=== PATIENT | male | born 1935 | race Caucasian/White ===

== ENCOUNTER 2016-06-08 07:53 | Emergency (ER) | payer MEDICARE ==
[~2016-06-08] VITALS: Ht 162.6 cm; Wt 73.0 kg
[2016-06-08 08:50] VITALS: BP 123/72
== END 2016-06-08 08:59 | disposition home or self-care (01) ==
LOC: ER 08:23
DX: R05 Cough (principal); M19.90 Unspecified osteoarthritis, unspecified site
CPT/HCPCS: 99282

== ENCOUNTER 2019-02-13 12:21 | Emergency (ER) | payer MEDICARE, OTHER ==
[~2019-02-13] VITALS: Ht 157.5 cm; Wt 78.0 kg
[2019-02-13 15:48] LABS: BASOPHILS % 0.5 % (0.0-2.0); EOSINOPHILS % 0.7 % (0.0-5.0); HEMATOCRIT. 41.7 % (42.0-52.0); HEMOGLOBIN. 14.2 g/dL (14.0-18.0); LYMPHOCYTES % 19.6 % (20.0-50.0); MEAN CORPUSCULAR HEMOGLOBIN 32.1 pg (28.0-32.0); MEAN CORPUSCULAR VOLUME 94.5 fL (80.0-94.0); MEAN PLATELET VOLUME 7.4 fl (7.4-10.4); MONOCYTES % 5.1 % (2.0-8.0); NEUTROPHILS % 74.1 % (40.0-76.0); PLATELET 251 x1000/uL (130-400); RED BLOOD CELL COUNT 4.41 mill/uL (4.7-6.1); RED CELL DISTRIBUTION WIDTH 14.3 % (11.6-14.6)
[2019-02-13 15:50] LABS: CHLORIDE 107 mEq/L (98-107)
[2019-02-13 15:55] LABS: CLARITY URINE CLEAR (CLEAR); COLOR URINE YELLOW (YELLOW); KETONES URINE NEGATIVE (NEGATIVE); LEUKOCYTE ESTERASE URINE 3+ (NEGATIVE); NITRITE URINE NEGATIVE (NEGATIVE); OCCULT BLOOD URINE 2+ (NEGATIVE); PROTEIN URINE NEGATIVE (NEGATIVE); SPECIFIC GRAVITY URINE 1.008 (1.005-1.030); UROBILINOGEN URINE 0.2 E.U./dL (0.2-1.0)
[2019-02-13] MEDS ORDERED: CEFTRIAXONE 1 G PREMIX 50 ML IV ONE (16:15)
[2019-02-13 17:45] VITALS: BP 124/74
== END 2019-02-13 17:51 | disposition home or self-care (01) ==
LOC: ER 12:21
DX: N39.0 Urinary tract infection, site not specified (principal)
CPT/HCPCS: 36415; 74176; 80053; 81003; 85025; 87077; 87086; 87186; 96365; 99284; J0696

== ENCOUNTER 2020-07-23 03:18 | Emergency (ER) | payer MEDICARE ==
[~2020-07-23] VITALS: Ht 154.9 cm; Wt 73.0 kg
[2020-07-23 03:20] VITALS: BP 122/82
[2020-07-23 03:52] LABS: CLARITY URINE TURBID (CLEAR); COLOR URINE ORANGE (YELLOW); KETONES URINE NEGATIVE (NEGATIVE); LEUKOCYTE ESTERASE URINE 3+ (NEGATIVE); NITRITE URINE NEGATIVE (NEGATIVE); OCCULT BLOOD URINE 3+ (NEGATIVE); PH URINE 6.5 (4.5-8.0); PROTEIN URINE 3+ (NEGATIVE); SPECIFIC GRAVITY URINE 1.016 (1.005-1.030)
[2020-07-23] MEDS ORDERED: CEPH500C2 MT (04:14)
[2020-07-23] MEDS ORDERED: CEPHALEXIN 250MG CAPSULE PO ONE (04:15)
== END 2020-07-23 04:24 | disposition home or self-care (01) ==
LOC: ER 03:18
DX: N30.00 Acute cystitis without hematuria (principal); Z87.440 Personal history of urinary (tract) infections
CPT/HCPCS: 81003; 87077; 87186; 99283

== ENCOUNTER 2020-11-06 20:44 | Emergency (ER) | payer MEDICARE, OTHER ==
[~2020-11-06] VITALS: Ht 165.1 cm; Wt 75.0 kg
[~2020-11-06 20:44] MED LIST: CEPH500C2 MT
[2020-11-06] MEDS ORDERED: TETANUS, DIPHTHERIA, PERTUSSIS VAC/PF 0.5ML (>7YR OLD) IM ONE (21:30)
[2020-11-06 21:40] LABS: BASOPHILS % 0.4 % (0.0-2.0); HEMATOCRIT. 42.8 % (42.0-52.0); HEMOGLOBIN. 14.5 g/dL (14.0-18.0); MEAN CORPUSCULAR HEMOGLOBIN 32.1 pg (28.0-32.0); MEAN CORPUSCULAR VOLUME 94.4 fL (80.0-94.0); MEAN PLATELET VOLUME 7.7 fl (7.4-10.4); MONOCYTES % 4.2 % (2.0-8.0); NEUTROPHILS % 70.4 % (40.0-76.0); PLATELET 187 x1000/uL (130-400); RED BLOOD CELL COUNT 4.53 mill/uL (4.7-6.1); RED CELL DISTRIBUTION WIDTH 14.2 % (11.6-14.6)
[2020-11-06 21:42] LABS: CLARITY URINE CLOUDY (CLEAR); COLOR URINE DARK YELLOW (YELLOW); KETONES URINE 1+ (NEGATIVE); LEUKOCYTE ESTERASE URINE TRACE (NEGATIVE); NITRITE URINE NEGATIVE (NEGATIVE); OCCULT BLOOD URINE NEGATIVE (NEGATIVE); PH URINE 5.5 (4.5-8.0); PROTEIN URINE 1+ (NEGATIVE); SPECIFIC GRAVITY URINE 1.027 (1.005-1.030); UROBILINOGEN URINE 0.2 E.U./dL (0.2-1.0)
[2020-11-06 21:45] LABS: CHLORIDE 102 mEq/L (98-107)
[2020-11-06 21:51] LABS: PROTHROMBIN TIME 10.5 sec (9.6-11.0)
[2020-11-06] MEDS ORDERED: POTASSIUM CHLORIDE 20MEQ TABLET SR PO ONE (22:30)
[2020-11-07 00:58] VITALS: BP 106/68
== END 2020-11-07 01:11 | disposition home or self-care (01) ==
LOC: ER 20:44
DX: S00.81XA Abrasion of other part of head, initial encounter (principal); W18.39XA Other fall on same level, initial encounter; Y93.89 Activity, other specified; Y92.89 Other specified places as the place of occurrence of the external cause; Y99.8 Other external cause status; Z87.440 Personal history of urinary (tract) infections
CPT/HCPCS: 36415; 80053; 81003; 85025; 90471; 90715; 93005; 99285

== ENCOUNTER 2020-11-12 09:40 | Inpatient (IN) | payer MEDICARE, OTHER ==
[~2020-11-12] VITALS: Ht 162.6 cm; Wt 62.6 kg
[2020-11-12] MEDS ORDERED: DEXAMETHASONE 10 MG/ML VIAL IV ONE (10:15)
[2020-11-12 10:27] LABS: HEMATOCRIT. 41.9 % (42.0-52.0); HEMOGLOBIN. 14.6 g/dL (14.0-18.0); MEAN CORPUSCULAR HEMOGLOBIN 32.1 pg (28.0-32.0); MEAN PLATELET VOLUME 7.6 fl (7.4-10.4); PLATELET 276 x1000/uL (130-400); RED BLOOD CELL COUNT 4.56 mill/uL (4.7-6.1); RED CELL DISTRIBUTION WIDTH 14.1 % (11.6-14.6)
[2020-11-12 10:30] LABS: CHLORIDE 102 mEq/L (98-107)
[2020-11-12 10:32] LABS: INR 1.1; PROTHROMBIN TIME 11.4 sec (9.6-11.0)
[2020-11-12 10:55] LABS: CREATINE KINASE 265 IU/L (39-308)
[2020-11-12 10:57] LABS: PLATELET ESTIMATE NORMAL
[2020-11-12 11:50] LABS: BG BASE EXCESS -5.8 mmol/L (-2.0-2.0); BG CARBOXYHEMOGLOBIN 0.8 % (0.5-1.5); BG DEOXYHEMOGLOBIN 5.8 % (0.0-5.0); BG FRACTION INSPIRED OXYGEN 36; BG METHEMOGLOBIN 0.1 % (0.0-1.5); BG OXYGEN SATURATION 94.1 % (92.0-98.5); BG OXYHEMOGLOBIN 93.3 % (94.0-97.0); BG PH 7.416 (7.350-7.450); BG PO2 70.7 mmHg (75.0-100.0); BG SAMPLE SITE RIGHT BRACHIAL; BG VENT MODE NASAL CANNULA
[2020-11-12] MEDS ORDERED: AZITHROMYCIN 500 MG in DEXT 5% WATER 250 ML IV SCH (12:30)
[2020-11-12] MEDS ORDERED: CEFTRIAXONE 1 G PREMIX 50 ML IV ONE (12:30)
[2020-11-12 13:11] LABS: CLARITY URINE CLEAR (CLEAR); COLOR URINE DARK YELLOW (YELLOW); KETONES URINE 4+ (NEGATIVE); LEUKOCYTE ESTERASE URINE NEGATIVE (NEGATIVE); NITRITE URINE NEGATIVE (NEGATIVE); OCCULT BLOOD URINE 2+ (NEGATIVE); PH URINE 6.5 (4.5-8.0); PROTEIN URINE 2+ (NEGATIVE); SPECIFIC GRAVITY URINE 1.029 (1.005-1.030)
[2020-11-12] MEDS ORDERED: ALBUTEROL (0.5%) 2.5MG/0.5ML NEB HHN ONE (14:45)
[2020-11-12] MEDS ORDERED: DOCUSATE SODIUM 100MG CAPSULE PO PRN (16:00)
[2020-11-12] MEDS ORDERED: HYDROCODONE/ACETAMINOPHEN 5/325MG TABLET PO PRN (16:00)
[2020-11-12] MEDS ORDERED: GUAIFENESIN 200MG/10ML SUGAR FREE UDC PO PRN (16:00)
[2020-11-12] MEDS ORDERED: NA PHOS,M-B/NA PHOS,DI-BA ENEMA 118ML PR PRN (16:00)
[2020-11-12] MEDS ORDERED: ONDANSETRON HCL 4MG/2ML INJ IV PRN (16:00)
[2020-11-12] MEDS ORDERED: ACETAMINOPHEN 650MG SUPP PR PRN (16:00)
[2020-11-12] MEDS ORDERED: ACETAMINOPHEN 650MG/20.3ML UDC GT PRN (16:00)
[2020-11-12] MEDS ORDERED: CLONIDINE 0.1MG TABLET PO PRN (16:00)
[2020-11-12] MEDS ORDERED: MAGNESIUM/ALUMINUM HYDROXIDE/SIMETHICONE 30ML UDC PO PRN (16:00)
[2020-11-12] MEDS: ENOXAPARIN 40MG/0.4ML SYR SUBCUT SCH (17:53)
[2020-11-12] MEDS: DEXAMETHASONE 10 MG/ML VIAL IV SCH (17:53)
[2020-11-12 18:15] VITALS: BP 97/56
[2020-11-12] MEDS: ALBUTEROL 6.7GM HFA INHALER ORI SCH ×2 (18:15→21:27)
[2020-11-12 18:21] VITALS: BP 97/56
[2020-11-12] MEDS ORDERED: CIPR-264 MT (18:37)
[2020-11-12 20:00] VITALS: BP 104/62
[2020-11-12] MEDS: CEFEPIME 1,000 MG in DEXTROSE 5% WATER 50 ML IV SCH (21:26)
[2020-11-12] MEDS: FAMOTIDINE 20MG TABLET PO SCH (21:27)
[2020-11-12 23:23] LABS: CREATINE KINASE 179 IU/L (39-308)
[2020-11-12 23:24] LABS: CREATINE KINASE MB FRACTION 2.7 ng/mL (0.5-3.6)
[2020-11-13] VITALS: BP 110/63
[2020-11-13 04:00] VITALS: BP 111/51
[2020-11-13] MEDS: ALBUTEROL 6.7GM HFA INHALER ORI SCH ×4 (04:00→20:25)
[2020-11-13 07:18] LABS: HEMATOCRIT. 41.9 % (42.0-52.0); HEMOGLOBIN. 14.4 g/dL (14.0-18.0); MEAN CORPUSCULAR HEMOGLOBIN 31.7 pg (28.0-32.0); MEAN CORPUSCULAR VOLUME 92.1 fL (80.0-94.0); MEAN PLATELET VOLUME 7.7 fl (7.4-10.4); PLATELET 297 x1000/uL (130-400); RED BLOOD CELL COUNT 4.54 mill/uL (4.7-6.1); RED CELL DISTRIBUTION WIDTH 14.2 % (11.6-14.6)
[2020-11-13 07:31] LABS: CHLORIDE 102 mEq/L (98-107)
[2020-11-13 07:41] LABS: T4 FREE 1.18 ng/dL (0.76-1.46)
[2020-11-13 07:42] LABS: CREATINE KINASE 136 IU/L (39-308); CREATINE KINASE MB FRACTION 3.7 ng/mL (0.5-3.6); HDL CHOLESTEROL 30 mg/dL (40-59); LDL CHOLESTEROL 99 mg/dL (5-100)
[2020-11-13 08:00] VITALS: BP 117/62
[2020-11-13] MEDS: CEFEPIME 1,000 MG in DEXTROSE 5% WATER 50 ML IV SCH ×2 (08:19→20:25)
[2020-11-13] MEDS: DEXAMETHASONE 10 MG/ML VIAL IV SCH (08:20)
[2020-11-13 10:16] LABS: *AMPHETAMINES SCREEN URINE NEGATIVE (NEGATIVE); *BARBITURATES SCREEN URINE NEGATIVE (NEGATIVE); *BENZODIAZEPINES SCREEN URINE NEGATIVE (NEGATIVE); *COCAINE SCREEN URINE NEGATIVE (NEGATIVE); CANNABINOID URINE SCREEN NEGATIVE (NEGATIVE); METHADONE URINE SCREEN NEGATIVE (NEGATIVE); OPIATES URINE SCREEN NEGATIVE (NEGATIVE); PHENCYCLIDINE URINE SCREEN NEGATIVE (NEGATIVE)
[2020-11-13] MEDS ORDERED: POTASSIUM CHLORIDE 20MEQ TABLET SR PO NR (11:00)
[2020-11-13 12:00] VITALS: BP 119/69
[2020-11-13] MEDS: AZITHROMYCIN 500 MG in DEXT 5% WATER 250 ML IV SCH (12:20)
[2020-11-13] MEDS ORDERED: CEFTRIAXONE 1 G PREMIX 50 ML IV SCH (12:30)
[2020-11-13] MEDS ORDERED: AZITHROMYCIN 500 MG in DEXT 5% WATER 250 ML IV SCH (13:00)
[2020-11-13 16:00] VITALS: BP 131/74
[2020-11-13 17:00] LABS: BG BASE EXCESS -5.4 mmol/L (-2.0-2.0); BG CARBOXYHEMOGLOBIN 0.6 % (0.5-1.5); BG DEOXYHEMOGLOBIN 6.2 % (0.0-5.0); BG FRACTION INSPIRED OXYGEN 100; BG HCO3 ACT 16.8 mmol/L (22.0-26.0); BG METHEMOGLOBIN 0.3 % (0.0-1.5); BG OXYGEN SATURATION 93.7 % (92.0-98.5); BG OXYHEMOGLOBIN 92.9 % (94.0-97.0); BG PCO2 25.2 mmHg (35.0-45.0); BG PH 7.442 (7.350-7.450); BG PO2 67.8 mmHg (75.0-100.0); BG SAMPLE SITE RIGHT RADIAL; BG TOTAL HEMOGLOBIN 14.9 g/dL (12.0-18.0); BG VENT MODE MASK - NRB
[2020-11-13] MEDS ORDERED: NALOXONE HCL 0.4MG/ML VIAL IV PRN (17:00)
[2020-11-13 17:01] LABS: PLATELET ESTIMATE NORMAL
[2020-11-13] MEDS: ENOXAPARIN 40MG/0.4ML SYR SUBCUT SCH (17:04)
[2020-11-13 20:00] VITALS: BP 133/79
[2020-11-13] MEDS: FAMOTIDINE 20MG TABLET PO SCH (20:25)
[2020-11-13] MEDS ORDERED: IOHEXOL-350 100 ML BOTTLE ONE (23:24)
[2020-11-14] VITALS: BP 106/68
[2020-11-14 04:00] VITALS: BP 119/68
[2020-11-14] MEDS: ALBUTEROL 6.7GM HFA INHALER ORI SCH ×4 (06:08→22:05)
[2020-11-14 06:25] LABS: CHLORIDE 103 mEq/L (98-107)
[2020-11-14] MEDS: DEXAMETHASONE 10 MG/ML VIAL IV SCH (08:59)
[2020-11-14] MEDS: CEFEPIME 1,000 MG in DEXTROSE 5% WATER 50 ML IV SCH ×2 (08:59→22:05)
[2020-11-14 11:14] LABS: BG BASE EXCESS -3.4 mmol/L (-2.0-2.0); BG CARBOXYHEMOGLOBIN 0.4 % (0.5-1.5); BG DEOXYHEMOGLOBIN 4.3 % (0.0-5.0); BG FRACTION INSPIRED OXYGEN 99.8; BG HCO3 ACT 18.8 mmol/L (22.0-26.0); BG METHEMOGLOBIN 0.3 % (0.0-1.5); BG OXYGEN SATURATION 95.7 % (92.0-98.5); BG PCO2 27.5 mmHg (35.0-45.0); BG PH 7.453 (7.350-7.450); BG SAMPLE SITE LEFT RADIAL; BG TOTAL HEMOGLOBIN 15.9 g/dL (12.0-18.0); BG VENT MODE MASK - NRB
[2020-11-14 12:00] VITALS: BP 117/77
[2020-11-14] MEDS: AZITHROMYCIN 500 MG in DEXT 5% WATER 250 ML IV SCH (12:17)
[2020-11-14 16:00] VITALS: BP 144/91
[2020-11-14] MEDS: ENOXAPARIN 40MG/0.4ML SYR SUBCUT SCH (19:18)
[2020-11-14 20:00] VITALS: BP 134/83
[2020-11-14] MEDS: FAMOTIDINE 20MG TABLET PO SCH (22:05)
[2020-11-15] VITALS: BP 125/76
[2020-11-15 04:00] VITALS: BP 118/81
[2020-11-15] MEDS: ALBUTEROL 6.7GM HFA INHALER ORI SCH ×4 (05:05→17:13)
[2020-11-15 07:03] LABS: HEMATOCRIT. 47.9 % (42.0-52.0); HEMOGLOBIN. 16.1 g/dL (14.0-18.0); MEAN CORPUSCULAR VOLUME 92.1 fL (80.0-94.0); MEAN PLATELET VOLUME 7.8 fl (7.4-10.4); PLATELET 370 x1000/uL (130-400); RED CELL DISTRIBUTION WIDTH 14.3 % (11.6-14.6)
[2020-11-15 07:13] LABS: CHLORIDE 102 mEq/L (98-107)
[2020-11-15 08:00] VITALS: BP 100/51
[2020-11-15] MEDS: DEXAMETHASONE 10 MG/ML VIAL IV SCH (08:01)
[2020-11-15] MEDS: CEFEPIME 1,000 MG in DEXTROSE 5% WATER 50 ML IV SCH ×2 (08:01→20:21)
[2020-11-15 11:48] LABS: BG BASE EXCESS -1.8 mmol/L (-2.0-2.0); BG CARBOXYHEMOGLOBIN 0.7 % (0.5-1.5); BG DEOXYHEMOGLOBIN 8.6 % (0.0-5.0); BG FRACTION INSPIRED OXYGEN 99.8; BG HCO3 ACT 20.3 mmol/L (22.0-26.0); BG OXYGEN SATURATION 91.3 % (92.0-98.5); BG OXYHEMOGLOBIN 90.7 % (94.0-97.0); BG PCO2 28.6 mmHg (35.0-45.0); BG PO2 58.1 mmHg (75.0-100.0); BG SAMPLE SITE RIGHT BRACHIAL; BG TOTAL HEMOGLOBIN 15.7 g/dL (12.0-18.0); BG VENT MODE MASK - NRB
[2020-11-15 12:00] VITALS: BP 134/82
[2020-11-15] MEDS: AZITHROMYCIN 500 MG in DEXT 5% WATER 250 ML IV SCH (15:02)
[2020-11-15 16:00] VITALS: BP 137/74
[2020-11-15] MEDS: ENOXAPARIN 40MG/0.4ML SYR SUBCUT SCH (17:04)
[2020-11-15 20:00] VITALS: BP 139/86
[2020-11-15 20:03] LABS: PLATELET ESTIMATE NORMAL
[2020-11-15] MEDS: FAMOTIDINE 20MG TABLET PO SCH (20:45)
[2020-11-15] MEDS: DIPHENHYDRAMINE 50MG/ML VIAL IV PRN (20:45)
[2020-11-16] VITALS: BP 125/83
[2020-11-16] MEDS: DIPHENHYDRAMINE 50MG/ML VIAL IV PRN ×2 (03:08→08:01)
[2020-11-16 04:00] VITALS: BP 126/73
[2020-11-16] MEDS: LORAZEPAM 0.5MG TABLET PO PRN ×2 (04:12→08:01)
[2020-11-16] MEDS: ALBUTEROL 6.7GM HFA INHALER ORI SCH ×4 (04:12→21:12)
[2020-11-16 07:44] LABS: HEMATOCRIT. 44.2 % (42.0-52.0); MEAN CORPUSCULAR HEMOGLOBIN 31.5 pg (28.0-32.0); MEAN CORPUSCULAR VOLUME 93.1 fL (80.0-94.0); MEAN PLATELET VOLUME 7.3 fl (7.4-10.4); PLATELET 367 x1000/uL (130-400); RED BLOOD CELL COUNT 4.75 mill/uL (4.7-6.1); RED CELL DISTRIBUTION WIDTH 14.2 % (11.6-14.6)
[2020-11-16 08:00] VITALS: BP 112/76
[2020-11-16] MEDS: DEXAMETHASONE 10 MG/ML VIAL IV SCH (08:01)
[2020-11-16] MEDS: CEFEPIME 1,000 MG in DEXTROSE 5% WATER 50 ML IV SCH ×2 (08:01→19:32)
[2020-11-16 08:07] LABS: BG DEOXYHEMOGLOBIN 4.7 % (0.0-5.0); BG HCO3 ACT 21.1 mmol/L (22.0-26.0); BG METHEMOGLOBIN 0.2 % (0.0-1.5); BG OXYGEN SATURATION 95.3 % (92.0-98.5); BG OXYHEMOGLOBIN 95.1 % (94.0-97.0); BG PCO2 28.8 mmHg (35.0-45.0); BG PH 7.483 (7.350-7.450); BG PO2 74.9 mmHg (75.0-100.0); BG SAMPLE SITE RIGHT RADIAL; BG TOTAL HEMOGLOBIN 14.7 g/dL (12.0-18.0); BG VENT MODE VAPOTHERM
[2020-11-16 08:09] LABS: CHLORIDE 105 mEq/L (98-107)
[2020-11-16] MEDS ORDERED: LORAZEPAM 2MG/ML CPJ IV SCH (09:15)
[2020-11-16] MEDS ORDERED: IVERMECTIN 3 MG TABLET PO SCH (10:30)
[2020-11-16] MEDS ORDERED: LORAZEPAM 2MG/ML CPJ IV PRN ×2 (11:00→11:30)
[2020-11-16 12:00] VITALS: BP 114/81
[2020-11-16] MEDS: AZITHROMYCIN 500 MG in DEXT 5% WATER 250 ML IV SCH (12:05)
[2020-11-16] MEDS ORDERED: MORPHINE SULFATE 2 MG/ML CPJ (NOT FOR IM USE) IV PRN (12:15)
[2020-11-16] MEDS: QUETIAPINE FUMARATE 25MG TABLET PO SCH (12:51)
[2020-11-16 16:00] VITALS: BP 96/60
[2020-11-16 16:57] LABS: PLATELET ESTIMATE NORMAL
[2020-11-16] MEDS: ENOXAPARIN 40MG/0.4ML SYR SUBCUT SCH (17:06)
[2020-11-16] MEDS: LORAZEPAM 2MG/ML CPJ IV PRN (19:32)
[2020-11-16 20:00] VITALS: BP 98/52
[2020-11-16] MEDS: FAMOTIDINE 20MG TABLET PO SCH (21:12)
[2020-11-17] VITALS: BP 128/59
[2020-11-17] MEDS: LORAZEPAM 2MG/ML CPJ IV PRN (02:23)
[2020-11-17] MEDS: ALBUTEROL 6.7GM HFA INHALER ORI SCH ×4 (02:57→21:01)
[2020-11-17 04:00] VITALS: BP 130/64
[2020-11-17] MEDS: DIPHENHYDRAMINE 50MG/ML VIAL IV PRN (05:11)
[2020-11-17 06:23] LABS: HEMATOCRIT. 38.9 % (42.0-52.0); HEMOGLOBIN. 13.4 g/dL (14.0-18.0); MEAN CORPUSCULAR HEMOGLOBIN 31.5 pg (28.0-32.0); MEAN CORPUSCULAR VOLUME 91.3 fL (80.0-94.0); MEAN PLATELET VOLUME 7.7 fl (7.4-10.4); PLATELET 323 x1000/uL (130-400); RED BLOOD CELL COUNT 4.26 mill/uL (4.7-6.1); RED CELL DISTRIBUTION WIDTH 14.2 % (11.6-14.6)
[2020-11-17 06:48] LABS: CHLORIDE 108 mEq/L (98-107)
[2020-11-17 08:00] VITALS: BP 129/70
[2020-11-17] MEDS: QUETIAPINE FUMARATE 25MG TABLET PO SCH ×2 (08:12→09:00)
[2020-11-17] MEDS: DEXAMETHASONE 10 MG/ML VIAL IV SCH (08:12)
[2020-11-17] MEDS: CEFEPIME 1,000 MG in DEXTROSE 5% WATER 50 ML IV SCH ×2 (08:12→20:57)
[2020-11-17 10:38] LABS: PLATELET ESTIMATE NORMAL
[2020-11-17 12:00] VITALS: BP 124/61
[2020-11-17 12:20] LABS: BG BASE EXCESS -2.6 mmol/L (-2.0-2.0); BG CARBOXYHEMOGLOBIN 0.3 % (0.5-1.5); BG DEOXYHEMOGLOBIN 4.5 % (0.0-5.0); BG FRACTION INSPIRED OXYGEN 100; BG HCO3 ACT 20.3 mmol/L (22.0-26.0); BG METHEMOGLOBIN 0.3 % (0.0-1.5); BG OXYGEN SATURATION 95.5 % (92.0-98.5); BG OXYHEMOGLOBIN 94.9 % (94.0-97.0); BG PCO2 29.9 mmHg (35.0-45.0); BG PH 7.449 (7.350-7.450); BG PO2 77.9 mmHg (75.0-100.0); BG SAMPLE SITE RIGHT RADIAL; BG TOTAL HEMOGLOBIN 13.6 g/dL (12.0-18.0); BG VENT MODE HIGH FLOW
[2020-11-17] MEDS: DEXT 5%/0.45% NACL 1000ML 1,000 ML IV SCH (13:42)
[2020-11-17 16:00] VITALS: BP 106/61
[2020-11-17 18:24] LABS: BG BASE EXCESS -2.9 mmol/L (-2.0-2.0); BG CARBOXYHEMOGLOBIN 0.1 % (0.5-1.5); BG DEOXYHEMOGLOBIN 6.3 % (0.0-5.0); BG FRACTION INSPIRED OXYGEN 100; BG HCO3 ACT 19.7 mmol/L (22.0-26.0); BG METHEMOGLOBIN 0.3 % (0.0-1.5); BG OXYGEN SATURATION 93.7 % (92.0-98.5); BG OXYHEMOGLOBIN 93.3 % (94.0-97.0); BG PCO2 28.4 mmHg (35.0-45.0); BG PH 7.458 (7.350-7.450); BG PO2 66.2 mmHg (75.0-100.0); BG SAMPLE SITE RIGHT RADIAL; BG TOTAL HEMOGLOBIN 13.4 g/dL (12.0-18.0); BG VENT MODE HIGH FLOW
[2020-11-17] MEDS: ENOXAPARIN 40MG/0.4ML SYR SUBCUT SCH (19:18)
[2020-11-17 20:00] VITALS: BP 127/69
[2020-11-17] MEDS: FAMOTIDINE 20MG TABLET PO SCH (21:00)
[2020-11-18] VITALS (24 sets, daily range): BP systolic 59–152; BP diastolic 30–108
[2020-11-18] MEDS: ALBUTEROL 6.7GM HFA INHALER ORI SCH ×2 (07:24→11:51)
[2020-11-18 08:24] LABS: BG BASE EXCESS -1.8 mmol/L (-2.0-2.0); BG CARBOXYHEMOGLOBIN 0.1 % (0.5-1.5); BG DEOXYHEMOGLOBIN 9.5 % (0.0-5.0); BG HCO3 ACT 20.8 mmol/L (22.0-26.0); BG METHEMOGLOBIN 0.3 % (0.0-1.5); BG OXYGEN SATURATION 90.5 % (92.0-98.5); BG OXYHEMOGLOBIN 90.1 % (94.0-97.0); BG PCO2 29.9 mmHg (35.0-45.0); BG PH 7.461 (7.350-7.450); BG PO2 55.1 mmHg (75.0-100.0); BG SAMPLE SITE RIGHT RADIAL; BG TOTAL HEMOGLOBIN 14.7 g/dL (12.0-18.0); BG VENT MODE VAPOTHERM
[2020-11-18] MEDS: DEXT 5%/0.45% NACL 1000ML 1,000 ML IV SCH ×2 (08:28→23:19)
[2020-11-18] MEDS: QUETIAPINE FUMARATE 25MG TABLET PO SCH (08:28)
[2020-11-18] MEDS: DEXAMETHASONE 10 MG/ML VIAL IV SCH (08:43)
[2020-11-18 09:39] LABS: HEMATOCRIT. 40.7 % (42.0-52.0); MEAN CORPUSCULAR HEMOGLOBIN 31.5 pg (28.0-32.0); MEAN CORPUSCULAR VOLUME 91.4 fL (80.0-94.0); MEAN PLATELET VOLUME 7.6 fl (7.4-10.4); PLATELET 420 x1000/uL (130-400); RED BLOOD CELL COUNT 4.45 mill/uL (4.7-6.1); RED CELL DISTRIBUTION WIDTH 14.1 % (11.6-14.6)
[2020-11-18 09:43] LABS: CHLORIDE 109 mEq/L (98-107)
[2020-11-18 10:56] LABS: PLATELET ESTIMATE INCREASED
[2020-11-18 15:32] LABS: BG BASE EXCESS -2.6 mmol/L (-2.0-2.0); BG CARBOXYHEMOGLOBIN 0.7 % (0.5-1.5); BG DEOXYHEMOGLOBIN 5.2 % (0.0-5.0); BG HCO3 ACT 19.5 mmol/L (22.0-26.0); BG OXYGEN SATURATION 94.8 % (92.0-98.5); BG OXYHEMOGLOBIN 94.1 % (94.0-97.0); BG PCO2 27.6 mmHg (35.0-45.0); BG PH 7.468 (7.350-7.450); BG PO2 67.8 mmHg (75.0-100.0); BG SAMPLE SITE RIGHT BRACHIAL; BG TOTAL HEMOGLOBIN 14.6 g/dL (12.0-18.0); BG VENT MODE VAPOTHERM
[2020-11-18] MEDS: ENOXAPARIN 40MG/0.4ML SYR SUBCUT SCH (18:00)
[2020-11-18] MEDS ORDERED: POTASSIUM CHLORIDE INJ 40 MEQ in DEXT 5% WATER 250 ML IV ONE (20:30)
[2020-11-18] MEDS: FAMOTIDINE 20MG TABLET PO SCH (20:31)
[2020-11-19] VITALS (48 sets, daily range): BP systolic 86–162; BP diastolic 57–114
[2020-11-19 05:47] LABS: HEMATOCRIT. 39.2 % (42.0-52.0); HEMOGLOBIN. 13.6 g/dL (14.0-18.0); MEAN CORPUSCULAR HEMOGLOBIN 31.5 pg (28.0-32.0); MEAN CORPUSCULAR VOLUME 90.6 fL (80.0-94.0); MEAN PLATELET VOLUME 7.8 fl (7.4-10.4); PLATELET 400 x1000/uL (130-400); RED BLOOD CELL COUNT 4.33 mill/uL (4.7-6.1); RED CELL DISTRIBUTION WIDTH 13.8 % (11.6-14.6)
[2020-11-19 05:51] LABS: CHLORIDE 109 mEq/L (98-107)
[2020-11-19 07:31] LABS: PLATELET ESTIMATE NORMAL
[2020-11-19] MEDS: LORAZEPAM 2MG/ML CPJ IV PRN (07:36)
[2020-11-19] MEDS: QUETIAPINE FUMARATE 25MG TABLET PO SCH (08:26)
[2020-11-19] MEDS: DEXAMETHASONE 10 MG/ML VIAL IV SCH (08:26)
[2020-11-19 09:07] LABS: BG BASE EXCESS -3.7 mmol/L (-2.0-2.0); BG CARBOXYHEMOGLOBIN 0.3 % (0.5-1.5); BG DEOXYHEMOGLOBIN 7.3 % (0.0-5.0); BG FRACTION INSPIRED OXYGEN 99.9; BG HCO3 ACT 18.7 mmol/L (22.0-26.0); BG METHEMOGLOBIN 0.1 % (0.0-1.5); BG OXYGEN SATURATION 92.7 % (92.0-98.5); BG OXYHEMOGLOBIN 92.3 % (94.0-97.0); BG PCO2 27.4 mmHg (35.0-45.0); BG PH 7.453 (7.350-7.450); BG PO2 60.6 mmHg (75.0-100.0); BG SAMPLE SITE RIGHT RADIAL; BG TOTAL HEMOGLOBIN 13.9 g/dL (12.0-18.0); BG VENT MODE HIGH FLOW
[2020-11-19] MEDS: ENOXAPARIN 40MG/0.4ML SYR SUBCUT SCH (17:48)
[2020-11-19] MEDS: FAMOTIDINE 20MG TABLET PO SCH (20:12)
[2020-11-19] MEDS: DEXT 5%/0.45% NACL 1000ML 1,000 ML IV SCH (20:44)
[2020-11-19] MEDS: ALBUTEROL 6.7GM HFA INHALER ORI SCH ×2 (21:00→21:15)
[2020-11-20] VITALS (50 sets, daily range): BP systolic 74–145; BP diastolic 43–87
[2020-11-20] MEDS: LORAZEPAM 2MG/ML CPJ IV PRN (03:27)
[2020-11-20] MEDS: ALBUTEROL 6.7GM HFA INHALER ORI SCH ×3 (08:22→21:27)
[2020-11-20] MEDS: DEXAMETHASONE 10 MG/ML VIAL IV SCH (08:27)
[2020-11-20] MEDS: QUETIAPINE FUMARATE 25MG TABLET PO SCH (08:28)
[2020-11-20 09:51] LABS: BG BASE EXCESS -1.7 mmol/L (-2.0-2.0); BG CARBOXYHEMOGLOBIN 0.7 % (0.5-1.5); BG DEOXYHEMOGLOBIN 12.5 % (0.0-5.0); BG FRACTION INSPIRED OXYGEN 100; BG HCO3 ACT 20.2 mmol/L (22.0-26.0); BG METHEMOGLOBIN 0.3 % (0.0-1.5); BG OXYGEN SATURATION 87.4 % (92.0-98.5); BG OXYHEMOGLOBIN 86.5 % (94.0-97.0); BG PCO2 27.3 mmHg (35.0-45.0); BG PH 7.486 (7.350-7.450); BG PO2 49.6 mmHg (75.0-100.0); BG SAMPLE SITE LEFT RADIAL; BG TOTAL HEMOGLOBIN 14.6 g/dL (12.0-18.0); BG VENT MODE HIGH FLOW
[2020-11-20 13:06] LABS: HEMATOCRIT. 38.2 % (42.0-52.0); MEAN CORPUSCULAR HEMOGLOBIN 31.4 pg (28.0-32.0); MEAN PLATELET VOLUME 7.8 fl (7.4-10.4); PLATELET 345 x1000/uL (130-400); RED BLOOD CELL COUNT 4.16 mill/uL (4.7-6.1); RED CELL DISTRIBUTION WIDTH 14.2 % (11.6-14.6)
[2020-11-20 13:48] LABS: PLATELET ESTIMATE NORMAL
[2020-11-20 14:12] LABS: CHLORIDE 107 mEq/L (98-107)
[2020-11-20] MEDS: FAMOTIDINE 20MG TABLET PO SCH (20:20)
[2020-11-20] MEDS: DEXT 5%/0.45% NACL 1000ML 1,000 ML IV SCH (20:24)
[2020-11-20] MEDS: ENOXAPARIN 40MG/0.4ML SYR SUBCUT SCH (20:24)
[2020-11-21] VITALS (82 sets, daily range): BP systolic 65–200; BP diastolic 16–127
[2020-11-21] MEDS: ALBUTEROL 6.7GM HFA INHALER ORI SCH ×2 (01:15→08:15)
[2020-11-21 05:17] LABS: BG BASE EXCESS -3.7 mmol/L (-2.0-2.0); BG CARBOXYHEMOGLOBIN 0.4 % (0.5-1.5); BG DEOXYHEMOGLOBIN 20.2 % (0.0-5.0); BG FRACTION INSPIRED OXYGEN 100; BG HCO3 ACT 19.2 mmol/L (22.0-26.0); BG METHEMOGLOBIN 0.1 % (0.0-1.5); BG OXYGEN SATURATION 79.7 % (92.0-98.5); BG OXYHEMOGLOBIN 79.3 % (94.0-97.0); BG PCO2 29.5 mmHg (35.0-45.0); BG PH 7.432 (7.350-7.450); BG PO2 41.7 mmHg (75.0-100.0); BG SAMPLE SITE LEFT RADIAL; BG TOTAL HEMOGLOBIN 14.7 g/dL (12.0-18.0); BG VENT MODE HIGH FLOW
[2020-11-21 06:07] LABS: HEMATOCRIT. 40.6 % (42.0-52.0); HEMOGLOBIN. 13.9 g/dL (14.0-18.0); MEAN CORPUSCULAR HEMOGLOBIN 31.4 pg (28.0-32.0); MEAN CORPUSCULAR VOLUME 91.7 fL (80.0-94.0); MEAN PLATELET VOLUME 8.4 fl (7.4-10.4); PLATELET 325 x1000/uL (130-400); RED BLOOD CELL COUNT 4.43 mill/uL (4.7-6.1); RED CELL DISTRIBUTION WIDTH 14.2 % (11.6-14.6)
[2020-11-21 06:16] LABS: CHLORIDE 106 mEq/L (98-107)
[2020-11-21] MEDS: DEXAMETHASONE 10 MG/ML VIAL IV SCH (08:17)
[2020-11-21 08:48] LABS: BG BASE EXCESS -4.2 mmol/L (-2.0-2.0); BG CARBOXYHEMOGLOBIN 0.5 % (0.5-1.5); BG DEOXYHEMOGLOBIN 23.7 % (0.0-5.0); BG HCO3 ACT 19.8 mmol/L (22.0-26.0); BG METHEMOGLOBIN 0.3 % (0.0-1.5); BG OXYGEN SATURATION 76.1 % (92.0-98.5); BG OXYHEMOGLOBIN 75.5 % (94.0-97.0); BG PCO2 33.4 mmHg (35.0-45.0); BG PH 7.391 (7.350-7.450); BG PO2 40.5 mmHg (75.0-100.0); BG SAMPLE SITE RIGHT BRACHIAL; BG TOTAL HEMOGLOBIN 14.5 g/dL (12.0-18.0); BG VENT MODE MASK - BIPAP
[2020-11-21] MEDS: QUETIAPINE FUMARATE 25MG TABLET PO SCH (09:00)
[2020-11-21] MEDS ORDERED: NOREPINEPHRINE 8 MG in DEXT 5% WATER 242 ML IV PRN (10:45)
[2020-11-21] MEDS ORDERED: FENTANYL CITRATE/PF 1,000 MCG in SODIUM CHLORIDE 0.9% 80 ML IV PRN (11:45)
[2020-11-21] MEDS ORDERED: PROPOFOL 10MG/ML 100ML 100 ML IV PRN (12:15)
[2020-11-21] MEDS: FENTANYL CITRATE 2,500 MCG in SODIUM CHLORIDE 0.9% 200 ML IV PRN (13:07)
[2020-11-21] MEDS: MIDAZOLAM HCL 100 MG in SODIUM CHLORIDE 0.9% 80 ML IV PRN (13:10)
[2020-11-21 13:57] LABS: BG BASE EXCESS -9.7 mmol/L (-2.0-2.0); BG CARBOXYHEMOGLOBIN 0.8 % (0.5-1.5); BG DEOXYHEMOGLOBIN 13.5 % (0.0-5.0); BG HCO3 ACT 17.9 mmol/L (22.0-26.0); BG METHEMOGLOBIN 0.1 % (0.0-1.5); BG OXYGEN SATURATION 86.4 % (92.0-98.5); BG OXYHEMOGLOBIN 85.6 % (94.0-97.0); BG PCO2 45.1 mmHg (35.0-45.0); BG PH 7.216 (7.350-7.450); BG PO2 60.6 mmHg (75.0-100.0); BG SAMPLE SITE RIGHT RADIAL; BG TOTAL HEMOGLOBIN 15.2 g/dL (12.0-18.0); BG VENT MODE VENT - AC
[2020-11-21] MEDS ORDERED: SODIUM BICARBONATE 8.4% 1 MEQ/ML 50ML SYR IV NR ×4 (15:00→18:30)
[2020-11-21] MEDS ORDERED: PHENYLEPHRINE 50 MG in DEXT 5% WATER 245 ML IV PRN (15:15)
[2020-11-21 17:41] LABS: BG BASE EXCESS -13.1 mmol/L (-2.0-2.0); BG CARBOXYHEMOGLOBIN 0.4 % (0.5-1.5); BG DEOXYHEMOGLOBIN 13.9 % (0.0-5.0); BG HCO3 ACT 18.1 mmol/L (22.0-26.0); BG METHEMOGLOBIN 0.2 % (0.0-1.5); BG OXYHEMOGLOBIN 85.5 % (94.0-97.0); BG PCO2 67.2 mmHg (35.0-45.0); BG PH 7.047 (7.350-7.450); BG PO2 67.9 mmHg (75.0-100.0); BG SAMPLE SITE RIGHT BRACHIAL; BG TOTAL HEMOGLOBIN 13.2 g/dL (12.0-18.0); BG VENT MODE VENT - AC
[2020-11-21] MEDS: DEXT 5%/0.45% NACL 1000ML 1,000 ML IV SCH (17:42)
[2020-11-21] MEDS: ENOXAPARIN 40MG/0.4ML SYR SUBCUT SCH (17:48)
[2020-11-21 20:47] LABS: PLATELET ESTIMATE NORMAL
[2020-11-21 22:18] LABS: BG BASE EXCESS -1.4 mmol/L (-2.0-2.0); BG CARBOXYHEMOGLOBIN 0.5 % (0.5-1.5); BG DEOXYHEMOGLOBIN 9.9 % (0.0-5.0); BG FRACTION INSPIRED OXYGEN 100; BG HCO3 ACT 24.3 mmol/L (22.0-26.0); BG METHEMOGLOBIN 0.3 % (0.0-1.5); BG OXYHEMOGLOBIN 89.3 % (94.0-97.0); BG PCO2 44.6 mmHg (35.0-45.0); BG PH 7.355 (7.350-7.450); BG PO2 57.3 mmHg (75.0-100.0); BG SAMPLE SITE RIGHT FEMORAL; BG TOTAL HEMOGLOBIN 14.5 g/dL (12.0-18.0); BG TOTAL RESPIRATORY RATE 26 b/min; BG VENT MODE VENT - AC
[2020-11-22] VITALS (99 sets, daily range): BP systolic 31–173; BP diastolic 14–113
[2020-11-22] MEDS: PHENYLEPHRINE 100 MG in DEXT 5% WATER 240 ML IV PRN ×3 (01:25→23:01)
[2020-11-22] MEDS: NOREPINEPHRINE 32 MG in DEXT 5% WATER 218 ML IV PRN (04:24)
[2020-11-22] MEDS: FENTANYL CITRATE 2,500 MCG in SODIUM CHLORIDE 0.9% 200 ML IV PRN (08:09)
[2020-11-22] MEDS: PANTOPRAZOLE SODIUM 40 MG/VIAL IV SCH (08:14)
[2020-11-22] MEDS: QUETIAPINE FUMARATE 25MG TABLET PO SCH (08:14)
[2020-11-22] MEDS: DEXAMETHASONE 10 MG/ML VIAL IV SCH (08:14)
[2020-11-22] MEDS ORDERED: LIDOCAINE HCL 1% 20ML VIAL (Pyxis) INJ ONE (08:47)
[2020-11-22 09:36] LABS: BG BASE EXCESS 1.4 mmol/L (-2.0-2.0); BG CARBOXYHEMOGLOBIN 0.9 % (0.5-1.5); BG DEOXYHEMOGLOBIN 9.4 % (0.0-5.0); BG FRACTION INSPIRED OXYGEN 100; BG HCO3 ACT 27.1 mmol/L (22.0-26.0); BG METHEMOGLOBIN 0.3 % (0.0-1.5); BG OXYGEN SATURATION 90.5 % (92.0-98.5); BG OXYHEMOGLOBIN 89.4 % (94.0-97.0); BG PCO2 46.7 mmHg (35.0-45.0); BG PH 7.381 (7.350-7.450); BG PO2 57.6 mmHg (75.0-100.0); BG SAMPLE SITE RIGHT RADIAL; BG TOTAL HEMOGLOBIN 14.5 g/dL (12.0-18.0); BG VENT MODE VENT - AC
[2020-11-22] MEDS: ALBUTEROL 6.7GM HFA INHALER ORI SCH ×2 (12:42→16:22)
[2020-11-22] MEDS: DEXT 5%/0.45% NACL 1000ML 1,000 ML IV SCH ×2 (12:55→19:20)
[2020-11-22 13:27] LABS: HEMATOCRIT. 39.8 % (42.0-52.0); HEMOGLOBIN. 13.1 g/dL (14.0-18.0); MEAN CORPUSCULAR HEMOGLOBIN 30.6 pg (28.0-32.0); MEAN PLATELET VOLUME 8.4 fl (7.4-10.4); PLATELET 264 x1000/uL (130-400); RED BLOOD CELL COUNT 4.28 mill/uL (4.7-6.1); RED CELL DISTRIBUTION WIDTH 14.9 % (11.6-14.6)
[2020-11-22 13:44] LABS: CHLORIDE 102 mEq/L (98-107)
[2020-11-22 13:56] LABS: PLATELET ESTIMATE NORMAL
[2020-11-22] MEDS ORDERED: BLOOD SUGAR DIAGNOSTIC STRIP TEST SCH (14:30)
[2020-11-22] MEDS ORDERED: DEXTROSE 50% WATER 50ML SYRINGE IV PRN (14:30)
[2020-11-22] MEDS: MEROPENEM 1,000 MG in SODIUM CHLORIDE 0.9% 100 ML IV SCH ×2 (16:06→23:26)
[2020-11-22 16:27] LABS: CLARITY URINE CLOUDY (CLEAR); COLOR URINE ORANGE (YELLOW); KETONES URINE NEGATIVE (NEGATIVE); LEUKOCYTE ESTERASE URINE 1+ (NEGATIVE); NITRITE URINE POSITIVE (NEGATIVE); OCCULT BLOOD URINE 3+ (NEGATIVE); PH URINE 5.5 (4.5-8.0); PROTEIN URINE 2+ (NEGATIVE); SPECIFIC GRAVITY URINE 1.022 (1.005-1.030)
[2020-11-22] MEDS ORDERED: VANCOMYCIN 1250MG in DEXTROSE 5% WATER 250ML IV SCH (17:00)
[2020-11-22] MEDS ORDERED: INSULIN LISPRO 100 UNITS/ML SUBCUT SCH (17:00)
[2020-11-22] MEDS: ENOXAPARIN 40MG/0.4ML SYR SUBCUT SCH (17:14)
[2020-11-22] MEDS: BLOOD SUGAR DIAGNOSTIC STRIP TEST SCH (23:26)
[2020-11-22] MEDS: INSULIN LISPRO 100 UNITS/ML SUBCUT SCH (23:35)
[2020-11-23] VITALS (95 sets, daily range): BP systolic 54–176; BP diastolic 29–134
[2020-11-23] MEDS: MIDAZOLAM HCL 100 MG in SODIUM CHLORIDE 0.9% 80 ML IV PRN ×2 (05:49→14:06)
[2020-11-23 05:50] LABS: CHLORIDE 103 mEq/L (98-107)
[2020-11-23] MEDS: FENTANYL CITRATE 2,500 MCG in SODIUM CHLORIDE 0.9% 200 ML IV PRN ×2 (05:50→15:23)
[2020-11-23] MEDS: INSULIN LISPRO 100 UNITS/ML SUBCUT SCH ×3 (05:58→17:09)
[2020-11-23] MEDS: BLOOD SUGAR DIAGNOSTIC STRIP TEST SCH ×3 (05:58→17:09)
[2020-11-23 06:15] LABS: HEMATOCRIT. 43.4 % (42.0-52.0); HEMOGLOBIN. 14.2 g/dL (14.0-18.0); MEAN CORPUSCULAR HEMOGLOBIN 30.7 pg (28.0-32.0); MEAN CORPUSCULAR VOLUME 94.1 fL (80.0-94.0); MEAN PLATELET VOLUME 9.2 fl (7.4-10.4); PLATELET 221 x1000/uL (130-400); RED BLOOD CELL COUNT 4.61 mill/uL (4.7-6.1); RED CELL DISTRIBUTION WIDTH 14.8 % (11.6-14.6)
[2020-11-23] MEDS: ALBUTEROL 6.7GM HFA INHALER ORI SCH ×2 (08:15→15:40)
[2020-11-23] MEDS: PANTOPRAZOLE SODIUM 40 MG/VIAL IV SCH (08:49)
[2020-11-23] MEDS: DEXAMETHASONE 10 MG/ML VIAL IV SCH (08:49)
[2020-11-23] MEDS: MEROPENEM 1,000 MG in SODIUM CHLORIDE 0.9% 100 ML IV SCH ×2 (08:49→15:08)
[2020-11-23 10:05] LABS: BG BASE EXCESS -1.8 mmol/L (-2.0-2.0); BG FRACTION INSPIRED OXYGEN 100; BG HCO3 ACT 25.2 mmol/L (22.0-26.0); BG PCO2 51.2 mmHg (35.0-45.0); BG PO2 44.9 mmHg (75.0-100.0); BG SAMPLE SITE RIGHT BRACHIAL; BG VENT MODE VENT - AC
[2020-11-23 10:45] LABS: PLATELET ESTIMATE NORMAL
[2020-11-23] MEDS ORDERED: VANCOMYCIN 1 G PREMIX 200 ML IV SCH (12:00)
[2020-11-23] MEDS: NOREPINEPHRINE 32 MG in DEXT 5% WATER 218 ML IV PRN ×2 (12:28→18:28)
[2020-11-23] MEDS: PHENYLEPHRINE 100 MG in DEXT 5% WATER 240 ML IV PRN ×2 (12:42→20:57)
[2020-11-23 13:42] LABS: BG BASE EXCESS -8.2 mmol/L (-2.0-2.0); BG CARBOXYHEMOGLOBIN 0.7 % (0.5-1.5); BG DEOXYHEMOGLOBIN 17.7 % (0.0-5.0); BG FRACTION INSPIRED OXYGEN 100; BG HCO3 ACT 22.2 mmol/L (22.0-26.0); BG METHEMOGLOBIN 0.3 % (0.0-1.5); BG OXYGEN SATURATION 82.1 % (92.0-98.5); BG OXYHEMOGLOBIN 81.3 % (94.0-97.0); BG PH 7.126 (7.350-7.450); BG PO2 53.5 mmHg (75.0-100.0); BG SAMPLE SITE RIGHT RADIAL; BG TOTAL HEMOGLOBIN 14.4 g/dL (12.0-18.0); BG VENT MODE VENT - AC
[2020-11-23] MEDS ORDERED: SODIUM BICARBONATE 8.4% 1 MEQ/ML 50ML SYR IV NR (15:00)
[2020-11-23] MEDS: ENOXAPARIN 40MG/0.4ML SYR SUBCUT SCH (17:32)
== END 2020-11-23 22:47 | DRG 871 ==
LOC: ER 09:54 → 7WST 14:46 → EDBEDREQ 14:50 → ENRESERV 14:56 → 7WST 18:35 → MICUSO 11-18 05:08
PROVIDERS: ADMIT Internal Medicine; ATTEND Internal Medicine
PROC: 5A09357 Assistance with Respiratory Ventilation, Less than 24 Consecutive Hours, Continuous Positive Airway Pressure (ICD-10-PCS; 2020-11-15)
PROC: 5A0955A Assistance with Respiratory Ventilation, Greater than 96 Consecutive Hours, High Flow/Velocity Cannula (ICD-10-PCS; 2020-11-16)
PROC: 5A1945Z Respiratory Ventilation, 24-96 Consecutive Hours (ICD-10-PCS; principal; 2020-11-21)
PROC: 0BH17EZ Insertion of Endotracheal Airway into Trachea, Via Natural or Artificial Opening (ICD-10-PCS; 2020-11-21)
PROC: 5A09357 Assistance with Respiratory Ventilation, Less than 24 Consecutive Hours, Continuous Positive Airway Pressure (ICD-10-PCS; 2020-11-21)
PROC: 05HY33Z Insertion of Infusion Device into Upper Vein, Percutaneous Approach (ICD-10-PCS; 2020-11-22)
PROC: B54MZZA Ultrasonography of Right Upper Extremity Veins, Guidance (ICD-10-PCS; 2020-11-22)
PROC: 5A12012 Performance of Cardiac Output, Single, Manual (ICD-10-PCS; 2020-11-23)
DX: A41.89 Other specified sepsis (principal); U07.1 COVID-19; J12.82 Pneumonia due to coronavirus disease 2019; J96.01 Acute respiratory failure with hypoxia; E87.1 Hypo-osmolality and hyponatremia; E87.2 Acidosis; J98.11 Atelectasis; G93.49 Other encephalopathy; E87.6 Hypokalemia; I51.7 Cardiomegaly; I71.9 Aortic aneurysm of unspecified site, without rupture; N40.0 Benign prostatic hyperplasia without lower urinary tract symptoms; R62.7 Adult failure to thrive; D18.1 Lymphangioma, any site; I46.9 Cardiac arrest, cause unspecified; R74.01 Elevation of levels of liver transaminase levels; R73.9 Hyperglycemia, unspecified; S00.83XA Contusion of other part of head, initial encounter; W18.39XA Other fall on same level, initial encounter; Z87.440 Personal history of urinary (tract) infections; Z91.81 History of falling; Y93.89 Activity, other specified; Y92.89 Other specified places as the place of occurrence of the external cause; Z86.73 Personal history of transient ischemic attack (TIA), and cerebral infarction without residual deficits; Y99.8 Other external cause status; Z68.23 Body mass index [BMI] 23.0-23.9, adult
CPT/HCPCS: 36415; 36600; 71045; 71275; 76770; 76937; 80048; 80053; 80061; 80305; 81003; 82375; 82550; 82553; 82728; 82805; 82962; 83605; 83615; 84145; 84153; 84439; 84443; 84478; 84484; 85025; 85379; 86140; 87070; 93005; 93970; 94003; 94640; 94660; 97162; 99285; C1725; C9113; J0456; J0692; J0696; J1100; J1200; J1650; J1815; J2060; J2185; J2250; J2370; J2704; J3010; J3370; J3480; J3490; J7040; J7050; J7060; Q9967; U0003; U0005; A4315; G0103